=== PATIENT | female | born 2000 | race Two or more races ===

== ENCOUNTER 2024-04-25 17:44 | Inpatient (IN) | payer MEDICAID, OTHER ==
[~2024-04-25] VITALS: Ht 162.6 cm; Wt 94.6 kg
--- NOTE | 2024-04-25 18:28 | ED.PDOC ---
History of Present Illness HPI Comments 23 y/o F, with a Hx of irregular periods, obesity, and tobacco use, presents with c/o non-radiating, RUQ abdominal pain, nausea, vomiting, increase urine frequency, and abnormal vaginal bleeding for the past 2x days, today. Patient is a Urdu speaker and endorses on unprovoked onset of symptoms, with no prior Hx in the past. Patient comments on noticing blood whenever using the bathroom and wiping. Patient states on LMP being 2x months ago but refutes being , currently. Patient reports no additional relevant or pertinent Hx along with any recent injuries, sick contact, travel, spoiled food, sexual activity, or substance use/exposure. Patient denies having any hematemesis, diarrhea, dysurias, fever, chills, or other associated symptoms or modifiers at this time. 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: Other (irregular periods ) LMP 02/2024 Family History Family History: Reviewed,noncontributory to illness, No family hx of Cancer, No family hx of DM, No family hx of Heart linda, No family hx of HTN, No family hx ofKidney linda, No family hx of Liver linda, No family hx of Lung linda, No family hx of Stroke Social History Smoker: Cigarettes Alcohol: Denies ETOH Use Drugs: Denies Drug Use Lives In: Home Constitutional: denies: chills, diaphoresis, fatigue, fever, malaise, sweats, weakness, others EENTM: denies: blurred vision, double vision, ear bleeding, ear discharge, ear drainage, ear pain, ear ringing, eye pain, eye redness, hearing loss, mouth pain, mouth swelling, nasal discharge, nose bleeding, nose congestion, nose pain, photophobia, tearing, throat pain, throat swelling, voice changes, others Respiratory: denies: cough, hemoptysis, orthopnea, SOB at rest, shortness of breath, SOB with excertion, stridor, wheezing, others Cardiovascular: denies: chest pain, dizzy spells, diaphoresis, Dyspnea on exertion, edema, irregular heart beat, left arm pain, lightheadedness, palpitations, PND, syncope, others Gastrointestinal: reports: abdominal pain, nausea, vomiting; denies: abdomen distended, blood streaked bowels, constipated, diarrhea, dysphagia, difficulty swallowing, hematemesis, melena, poor appetite, poor fluid intake, rectal bleeding, rectal pain, others Genitourinary: reports: abnormal vagina bleeding, frequency (urination ); denies: burning, dyspareunia, dysuria, flank pain, hematuria, incontinence, pain, , vagina discharge, urgency, others Neurological: denies: dizziness, fainting, headache, left sided numbness, left sided weakness, numbness, paresthesia, pre-existing deficit, right sided nu mbness, right sided weakness, seizure, speech problems, tingling, tremors, weakness, others Musculoskeletal: denies: back pain, gout, joint pain, joint swelling, muscle pain, muscle stiffness, neck pain, others Integumetry: denies: bruises, change in color, change in hair/nails, dryness, laceration, lesions, lumps, rash, wounds, others Allergic/Immunocompromised: denies: Difficulty Healing, Frequent Infections, Hives, Itching, others Hematologic/Lymphatic: denies: anemia, blood clots, easy bleeding, easy bruising, swollen glands, others Endocrine: denies: excessive hunger, excessive sweating, excessive thirst, excessive urination, flushing, intolerance to cold, intolerance to heat, unexplained weight gain, unexplained weight loss, others Psychiatric: denies: anxiety, bipolar disorder, depression, hopeless, panic disorder, schizophrenia, sleepless, suicidal, others All Other Systems: Reviewed and Negative Physical Exam General Appearance: Moderate Distress HEENT: Normal ENT Inspection, Pharynx Normal, TMs Normal Neck: Full Range of Motion, Non-Tender, Normal, Normal Inspection Respiratory: Chest Non-Tender, Lungs Clear, No Accessory Muscle Use, No Respiratory Distress, Normal Breath Sounds Cardiovascular: No Edema, No JVD, No Murmur, No Gallop, Normal Peripheral Pulses, Regular Rate/Rhythm Breast Exam: Deferred Gastrointestinal: No Organomegaly, No Pulsatile Mass, Normal Bowel Sounds, RUQ, Soft, Tenderness Genitalia: Deferred Pelvic: Deferred Rectal: Deferred Extremities: No calf tenderness, Normal capillary refill, Normal inspection, Normal range of motion, Non-tender, No pedal edema Musculoskeletal : Apperance: Normal Neurologic: Alert, 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 Was a procedure done?: No Differential Dx Considerations may include: cholelithiasis, cholecystitis, gastritis, gastroenteritis, PUD, GERD, spoiled food, , pyelonephritis, nephrolithiasis X-Ray, Labs, Meds, VS Vital Signs Date Time Temp Pulse Resp B/P (MAP) Pulse Ox O2 Delivery O2 Flow Rate FiO2 04/25/24 18:47 98.0 88 18 124/79 (94) 97 Lab Test 04/25/24 19:39 04/25/24 18:55 Range/Units Urine Color Pending Urine Clarity Pending Urine pH Pending Urine Specific [place] Pending Urine Protein Pending Urine Ketones Pending Urine Blood Pending Urine Nitrite Pending Urine Bilirubin Pending Urine Urobilinogen Pending Urine Leukocyte Esterase Pending Urine RBC Pending Urine WBC Pending Urine Squamous Epithelial Cells Pending Urine Bacteria Pending Urine Glucose Pending White Blood Count 9.6 4.4-10.8 10^3/uL Red Blood Count 4.71 4.0-5.20 10^6/uL Hemoglobin 14.3 12.2-16.2 g/dL Hematocrit 42.2 36.0-46.0 % Mean Corpuscular Volume 89.5 80.0-100.0 fL Mean Corpuscular Hemoglobin 30.3 28.0-32.0 pg Mean Corpuscular Hemoglobin Concent 33.9 32.0-36.0 g/dL Red Cell Distribution Width 14.3 11.8-14.3 % Platelet Count 248 140-450 10^3/uL Mean Platelet Volume 9.7 6.9-10.8 fL Neutrophils (%) (Auto) 76.3 37.0-80.0 % Lymphocytes (%) (Auto) 14.5 10.0-50.0 % Monocytes (%) (Auto) 5.3 0.0-12.0 % Eosinophils (%) (Auto) 3.5 0.0-7.0 % Basophils (%) (Auto) 0.4 0.0-2.0 % Neutrophils # (Auto) 7.3 1.6-8.6 10 ^3/uL Lymphocytes # (Auto) 1.4 0.4-5.4 10 ^3/uL Monocytes # (Auto) 0.5 0-1.3 10 ^3/uL Eosinophils # (Auto) 0.3 0-0.8 10 ^3/uL Basophils # (Auto) 0 0-0.2 10 ^3/uL Nucleated Red Blood Cells 0.0 % Sodium Level 142 136-145 mmol/L Potassium Level 4.1 3.5-5.1 mmol/L Chloride Level 106 98-107 mmol/L Carbon Dioxide Level 29 20-31 mmol/L Anion Gap 7 5-15 Blood Urea Nitrogen 12 9-23 mg/dL Creatinine 0.78 0.550-1.02 mg/dL Glomerular Filtration Rate Calc 109 >90 mL/min BUN/Creatinine Ratio 15.4 10.0-20.0 Serum Glucose 111 H 74-106 mg/dL Calcium Level 10.5 H 8.7-10.4 mg/dL Total Bilirubin 1.6 H 0.2-1.0 mg/dL Aspartate Amino Transferase (AST) 254 H 13-40 U/L Alanine Aminotransferase (ALT) 220 H 7-40 U/L Alkaline Phosphatase 163 H 46-116 U/L Total Protein 7.7 5.7-8.2 g/dL Albumin 5.0 H 3.2-4.8 g/dL Lipase 40 12-53 U/L Beta HCG, Quantitative 1.9 1.5-4.2 mIU/mL Ultrasound of the gallbladder shows: IMPRESSION: 1. Cholelithiasis without evidence of cholecystitis IV Hep-Lock was established. The patient was given Zofran 4 mg IV push for the nausea The patient was given Protonix 40 mg IV push The patient's CBC is within normal limits The liver enzymes are significantly elevated. The quantitative hCG is negative The bilirubin is elevated at 1.6 The patient will be admitted to the hospitalist. The diagnosis is acute cholelithiasis Images Reviewed?: Images reviewed and evaluated by me Time of 1ST Reevaluation: 18:45 Reevaluation 1ST: Unchanged Patient Education/Counseling: Diagnosis, Treatment, Prognosis Family Education/Counseling: No Family Present Departure 1 Departure Time of Disposition: 20:15 Impression: Primary Impression: Intractable abdominal pain Additional Impression: Cholelithiasis Qualified Codes: K80.20 - Calculus of gallbladder without cholecystitis without obstruction Disposition: ADMITTED INPATIENT Admit to: Med Surg Condition: Fair Critical Care Note Critical Care Time?: No Stability Stability form required: Yes Unstable for transfer: ED Physician Assesment (Clinical assesment) Heart Score Heart Score: Heart Score Response (Comments) Value History N/A 0 EKG N/A 0 Age N/A 0 Risk Factors N/A 0 Troponin N/A 0 Total 0 I personally scribed for AUGUSTO RESENDEZ MD ([email or web address]) on 04/25/24 at 18:28. Electronically submitted by Satinder Cobb ([email or web address]). AUGUSTO RESENDEZ MD Apr 25, 2024 18:28
[2024-04-25 19:31] LABS: Basophils # (auto) 0 10 ^3/uL (0-0.2); Basophils % (auto) 0.4 % (0.0-2.0); Eosinophils # (auto) 0.3 10 ^3/uL (0-0.8); Eosinophils % (auto) 3.5 % (0.0-7.0); Hematocrit 42.2 % (36.0-46.0); Hemoglobin 14.3 g/dL (12.2-16.2); Lymphocytes # (auto) 1.4 10 ^3/uL (0.4-5.4); Lymphocytes % (auto) 14.5 % (10.0-50.0); Mean Corpuscular Hemoglobin 30.3 pg (28.0-32.0); Mean Corpuscular Hgb Conc. 33.9 g/dL (32.0-36.0); Mean Corpuscular Volume 89.5 fL (80.0-100.0); Monocytes # (auto) 0.5 10 ^3/uL (0-1.3); Monocytes % (auto) 5.3 % (0.0-12.0); Neutrophils # (auto) 7.3 10 ^3/uL (1.6-8.6); Neutrophils % (auto) 76.3 % (37.0-80.0); Platelet Count (auto) 248 10^3/uL (140-450); Red Blood Cells 4.71 10^6/uL (4.0-5.20); Red Cell Distribution Width 14.3 % (11.8-14.3); White Blood Cell 9.6 10^3/uL (4.4-10.8)
[2024-04-25 19:40] LABS: Urine Bacteria None Seen /hpf (None Seen)
[2024-04-25 19:53] LABS: Anion Gap 7 (5-15); BUN/Creatinine Ratio 15.4 (10.0-20.0); Blood Urea Nitrogen 12 mg/dL (9-23); Carbon Dioxide 29 mmol/L (20-31); Chloride 106 mmol/L (98-107); Lipase 40 U/L (12-53); Potassium 4.1 mmol/L (3.5-5.1); Sodium 142 mmol/L (136-145); Total Protein 7.7 g/dL (5.7-8.2)
--- NOTE | 2024-04-25 20:02 | DVH ---
INDICATION: pain TECHNIQUE: Multiple real-time sonographic images of the abdomen were obtained. COMPARISON: None FINDINGS: Liver is homogenous in echogenicity. The liver measures 16.4 cm. No intrahepatic biliary ductal dilatation is noted. The gallbladder wall measures 0.2 cm and is unremarkable. Multiple mobile gallstones seen. No per icholecystic fluid or edema. The common duct measures 0.7 cm and is unremarkable. The right kidney measures 10.6 cm. No hydronephrosis. The pancreas is not well visualized due to obscuration from bowel gas. The visualized portions of the IVC and aorta are grossly unremarkable. IMPRESSION: 1. Cholelithiasis without evidence of cholecystitis
[2024-04-25 20:03] LABS: Alanine Aminotransferase 220 U/L (7-40); Alkaline Phosphatase 163 U/L (46-116); Aspartate Aminotransferase 254 U/L (13-40); Bilirubin, Total 1.6 mg/dL (0.2-1.0); Calcium 10.5 mg/dL (8.7-10.4); Glucose 111 mg/dL (74-106)
[2024-04-25 20:20] LABS: Urine Blood 3+ /uL (Negative); Urine Clarity Clear (Clear); Urine Color Yellow (Yellow); Urine Protein, UAD TRACE (Negative); Urine Specific Gravity 1.027 (1.001-1.035); Urine Urobilinogen 4 mg/dL (Negative); Urine WBC 3 /hpf (0 - 5); Urine pH 6.5 (5.0-9.0)
[2024-04-25] MEDS ORDERED: ONDANSETRON HCL 4 MG/2 ML VIAL IV PRN (21:15)
[2024-04-25] MEDS ORDERED: MORPHINE SULFATE INJ 2 MG/ml SYRG IV PRN ×2 (21:15)
[2024-04-25] MEDS ORDERED: NITROGLYCERIN 0.4 MG SL TAB SL PRN (21:15)
[2024-04-25] MEDS ORDERED: ACETAMINOPHEN 325 MG TAB PO PRN ×2 (21:15)
[2024-04-25 22:02] LABS: Triglycerides 133 mg/dL (< 150)
[2024-04-25 22:03] LABS: LDL Cholesterol 87 mg/dL (< 100)
[2024-04-25 22:04] LABS: Cholesterol 163 mg/dL (< 200); HDL Cholesterol 52 mg/dL (40-59)
[2024-04-25 22:12] LABS: INR 1.04 (0.9-1.15)
--- NOTE | 2024-04-25 22:34 | DVHHPRES ---
History of Present Illness Resident Creating Document: JASMYN SAENZ RESIDENT Reason for Visit: acute abdominal pain History of Present Illness 23-year-old female patient with past medical history of obesity nicotine dependency, presented to the Emergency permanent with the acute onset abdominal pain localized in the right upper quadrant, patient reports to have similar episodes in the past the last 1 being 1 year ago, this episode began today at 2:00 him and resolved by itself at 6:00 p.m. it started in the middle of the abdomen and travel to the right upper quadrant and does not exacerbates after meals as patient reports she had heavy meal that morning(greasy). The pain is associated with nausea, vomiting, increased urinary frequency , abnormal vaginal bleeding over the past two days. She denies recent injuries, sick contacts, travel consumption of spoiled food, sexual activity on exposure to substances. She also denies hematemesis area dysuria fever or other systemic symptoms. An abdominal ultrasound revealed findings of cholelithiasis without evidence of acute cholecystitis. Laboratory evaluation showed elevated AST and ALT and alkaline phosphatase, coagulation panels and other labs including vitals were within normal limits. mcburney and goyal signs were negative. Past Medical History Obesity Nicotine dependency Family History: None Smoke: <1 pack per day ALCOHOL: occassional Domestic Violence: Neg Review of Systems Review of Systems Constitutional: No: Fever, Chills, Sweats, Weakness, Malaise, Other Eyes: No: Pain, Vision change, Conjunctivae inflammation, Eyelid inflammation, Other, Redness ENT: No: Ear pain, Ear discharge, Nose pain, Nose discharge, Nose congestion, Mouth pain, Mouth swelling, Throat pain, Throat swelling, Other Respiratory: No Wheezing, Hemoptysis, Pleuritic Pain, Sputum, Wheezing, Other Cardiovascular: No: Chest Pain, Palpitations, Orthopnea, Paroxysmal Noc. Dyspnea, Edema, Lt Headedness, Other Gastrointestinal: No: Nausea, Vomiting, Abdominal Pain, Diarrhea, Constipation, Melena, Hematochezia, Other Musculoskeletal: No: other, neck pain, shoulder pain, arm pain, back pain, hand pain, leg pain, foot pain Neurological:; No: Weakness, Numbness, Incoordination, Change in speech, Confusion, Seizures Allergies: Coded Allergies: NO KNOWN ALLERGIES (Unverified , 04/25/24) Medications Current Medications Medications Dose Ordered Sig/Wilmer Route Start Time Stop Time Status Last Admin Dose Admin Sodium Chloride 1,000 ml @ 60 mls/hr [id number] IV 04/25/24 21:15 Ondansetron HCl 4 mg Q4HP PRN IV 04/25/24 21:15 Acetaminophen 650 mg Q6HP PRN PO 04/25/24 21:15 Morphine Sulfate 2 mg Q4HPRN PRN IV 04/25/24 21:15 Nitroglycerin 0.4 mg Q5MINP PRN SL 04/25/24 21:15 Morphine Sulfate 2 mg Q30M PRN IV 04/25/24 21:15 Exam Vital Signs Vital Signs Date Time Temp Pulse Resp B/P (MAP) Pulse Ox O2 Delivery O2 Flow Rate FiO2 04/25/24 18:47 98.0 88 18 124/79 (94) 97 Exam Examination General Appearance: Alert, Oriented X3, Cooperative, No acute distress HEENT: EOMI Respiratory: Clear to auscultation, Normal air movement Cardiovascular: Regular rate, Normal S1, Normal S2 Abdominal: Normal bowel sounds Extremities: No cyanosis, No edema, Normal pulses, No tenderness/swelling Skin: No rashes, No breakdown Neuro: Normal gait, Normal speech, Strength at 5/5 X4 ext, Normal tone, Sensation intact, Cranial nerves 3-12 NL, Reflexes 2+ Psych/Mental Status: Mental status NL, Mood NL Labs/Xrays Labs Test 04/25/24 19:39 04/25/24 18:55 Range/Units Urine Color Yellow Yellow Urine Clarity Clear Clear Urine pH 6.5 5.0-9.0 Urine Specific [place] 1.027 1.001-1.035 Urine Protein Trace H Negative Urine Ketones Negative Negative Urine Blood 3+ H Negative /uL Urine Nitrite Negative Negative Urine Bilirubin Negative Negative Urine Urobilinogen 4 H Negative mg/dL Urine Leukocyte Esterase Trace Negative /uL Urine RBC 49 0 - 4 /hpf Urine WBC 3 0 - 5 /hpf Urine Squamous Epithelial Cells Few <5 /hpf Urine Bacteria None seen None Seen /hpf Urine Glucose Normal Normal mg/dL White Blood Count 9.6 4.4-10.8 10^3/uL Red Blood Count 4.71 4.0-5.20 10^6/uL Hemoglobin 14.3 12.2-16.2 g/dL Hematocrit 42.2 36.0-46.0 % Mean Corpuscular Volume 89.5 80.0-100.0 fL Mean Corpuscular Hemoglobin 30.3 28.0-32.0 pg Mean Corpuscular Hemoglobin Concent 33.9 32.0-36.0 g/dL Red Cell Distribution Width 14.3 11.8-14.3 % Platelet Count 248 140-450 10^3/uL Mean Platelet Volume 9.7 6.9-10.8 fL Neutrophils (%) (Auto) 76.3 37.0-80.0 % Lymphocytes (%) (Auto) 14.5 10.0-50.0 % Monocytes (%) (Auto) 5.3 0.0-12.0 % Eosinophils (%) (Auto) 3.5 0.0-7.0 % Basophils (%) (Auto) 0.4 0.0-2.0 % Neutrophils # (Auto) 7.3 1.6-8.6 10 ^3/uL Lymphocytes # (Auto) 1.4 0.4-5.4 10 ^3/uL Monocytes # (Auto) 0.5 0-1.3 10 ^3/uL Eosinophils # (Auto) 0.3 0-0.8 10 ^3/uL Basophils # (Auto) 0 0-0.2 10 ^3/uL Nucleated Red Blood Cells 0.0 % Prothrombin Time 11.0 9.3-11.8 sec Prothrombin Time INR 1.04 0.9-1.15 Sodium Level 142 136-145 mmol/L Potassium Level 4.1 3.5-5.1 mmol/L Chloride Level 106 98-107 mmol/L Carbon Dioxide Level 29 20-31 mmol/L Anion Gap 7 5-15 Blood Urea Nitrogen 12 9-23 mg/dL Creatinine 0.78 0.550-1.02 mg/dL Glomerular Filtration Rate Calc 109 >90 mL/min BUN/Creatinine Ratio 15.4 10.0-20.0 Serum Glucose 111 H 74-106 mg/dL Calcium Level 10.5 H 8.7-10.4 mg/dL Total Bilirubin 1.6 H 0.2-1.0 mg/dL Aspartate Amino Transferase (AST) 254 H 13-40 U/L Alanine Aminotransferase (ALT) 220 H 7-40 U/L Alkaline Phosphatase 163 H 46-116 U/L Total Protein 7.7 5.7-8.2 g/dL Albumin 5.0 H 3.2-4.8 g/dL Lipase 40 12-53 U/L Beta HCG, Quantitative 1.9 1.5-4.2 mIU/mL Assessment/Plan Assessment/Plan #Acute abdominal , likely biliary colic with possible hepatobiliary or gastrointestinal components. -Cholelithiasis without acute cholecystitis, cholecystitis was ruled out based on abdominal ultrasound -morphine IV -ondansetron IV -surgical consultation as the patient will need a laparoscopic cholecystectomy -NPO -PT PTT and INR #Transaminitis likely due to hepatic involvement or biliary pathology -treat underlying condition #morbid obesity -lifestyle modification and dietary habits counseling Case discussed with Dr. Coyne Code status: Full code Goals of care discussed with the patient for 38 minutes Plan discussed with: Patient My Orders Orders - JASMYN SAENZ RESIDENT Procedure Category Date Status Time Admit ADMIT 04/25/24 Transmitted 21:13 Allergies XAVI 04/25/24 In Process 21:13 Code Status CODE 04/25/24 Transmitted 21:13 Sodium Chloride 0.9% PHA 04/25/24 In Process 21:15 Ondansetron Hcl PHA 04/25/24 In Process (Zofran) 21:15 Complete Blood Count LAB 04/26/24 Verified 04:00 Comprehensive LAB 04/26/24 Verified Metabolic Panel 04:00 Npo (Nothing By DIET 04/26/24 Transmitted Mouth) Diet Breakfast Acetaminophen Tablet PHA 04/25/24 In Process (Tylenol Tablet) 21:15 Morphine Sulfate PHA 04/25/24 In Process Injection 21:15 Nitroglycerin PHA 04/25/24 In Process Sublingual (Ntrostat 21:15 Morphine Sulfate PHA 04/25/24 In Process Injection 21:15 Oxygen By Nasal RT 04/25/24 Transmitted Cannula 21:13 Stat Ekg For Chest XAVI 04/25/24 In Process Pain 21:13 Notify Md Of Changes XAVI 04/25/24 In Process From Base 21:13 Architectural Examiner For XAVI 04/25/24 In Process 24 Hours 21:13 Emergency Dysrhythmia XAVI 04/25/24 In Process Protocol 21:13 Rhythm Strips Once XAVI 04/25/24 In Process Every Shift 21:13 Drug Screen LAB 04/25/24 In Process 21:20 Thyroid Stimulating LAB 04/25/24 In Process Hormone 21:20 Hemoglobin A1c LAB 04/25/24 In Process 21:20 Lipid Panel LAB 04/25/24 In Process 21:29 Date of Service: Apr 25, 2024 Billing Provider: JASPER COYNE MD Common Visit Codes: [id number] INP/OBS CARE (HIGH) JASMYN SAENZ RESIDENT Apr 25, 2024 22:34 JASPER COYNE MD Apr 26, 2024 15:01
[2024-04-25 23:04] LABS: Amphetamine Screen, Urine Neg (NEGATIVE); Barbiturate Scree,Urine Neg (NEGATIVE); Benzodiazephine Screen, Urine Neg (NEGATIVE); Cocaine Screen, Urine Neg (NEGATIVE); Opiate Scree,Urine Neg (NEGATIVE); Phencyclidine Screen, Urine Neg (NEGATIVE)
[2024-04-25] MEDS: MORPHINE SULFATE 4 MG/ML SYR/VIAL IV ONE (23:08)
[2024-04-25] MEDS: PANTOPRAZOLE 40 MG/10 ML VIAL INJ IV ONE (23:08)
[2024-04-25] MEDS: ONDANSETRON HCL 4 MG/2 ML VIAL IV ONE (23:08)
[2024-04-25] MEDS: SODIUM CHLORIDE 0.9% 1,000 ML IV SCH (23:09)
[2024-04-25 23:15] VITALS: BP 119/54; PULSE 81; RESP 18; TEMP 98; O2SAT 99
[2024-04-25 23:30] LABS: Cannabinoid Screen, Urine Neg (NEGATIVE)
[2024-04-26 01:00] VITALS: BP 101/65; PULSE 67; RESP 18; TEMP 98.4; O2SAT 95
--- NOTE | 2024-04-26 06:25 | DVHDSRES ---
Discharge Summary Date of Admission Resident Creating Document: JASMYN SAENZ RESIDENT Apr 25, 2024 at 21:13 Date of Discharge: Apr 26, 2024 Admitting Diagnosis Acute abdominal pain Labs/Diagnostic Data: Laboratory Results Test 04/25/24 19:39 04/25/24 18:55 Urine Color Yellow (Yellow) Urine Clarity Clear (Clear) Urine pH 6.5 (5.0-9.0) Urine Specific [place] 1.027 (1.001-1.035) Urine Protein Trace (Negative) Urine Ketones Negative (Negative) Urine Blood 3+ /uL (Negative) Urine Nitrite Negative (Negative) Urine Bilirubin Negative (Negative) Urine Urobilinogen 4 mg/dL (Negative) Urine Leukocyte Esterase Trace /uL (Negative) Urine RBC 49 /hpf (0 - 4) Urine WBC 3 /hpf (0 - 5) Urine Squamous Epithelial Cells Few /hpf (<5) Urine Bacteria None seen /hpf (None Seen) Urine Glucose Normal mg/dL (Normal) Urine Opiates Screen Neg (NEGATIVE) Urine Fentanyl Screen Neg (NEGATIVE) Urine Barbiturates Screen Neg (NEGATIVE) Urine Phencyclidine Screen Neg (NEGATIVE) Urine Amphetamines Screen Neg (NEGATIVE) Urine Benzodiazepines Screen Neg (NEGATIVE) Urine Cocaine Screen Neg (NEGATIVE) Urine Cannabinoids Screen Neg (NEGATIVE) White Blood Count 9.6 10^3/uL (4.4-10.8) Red Blood Count 4.71 10^6/uL (4.0-5.20) Hemoglobin 14.3 g/dL (12.2-16.2) Hematocrit 42.2 % (36.0-46.0) Mean Corpuscular Volume 89.5 fL (80.0-100.0) Mean Corpuscular Hemoglobin 30.3 pg (28.0-32.0) Mean Corpuscular Hemoglobin Concent 33.9 g/dL (32.0-36.0) Red Cell Distribution Width 14.3 % (11.8-14.3) Platelet Count 248 10^3/uL (140-450) Mean Platelet Volume 9.7 fL (6.9-10.8) Neutrophils (%) (Auto) 76.3 % (37.0-80.0) Lymphocytes (%) (Auto) 14.5 % (10.0-50.0) Monocytes (%) (Auto) 5.3 % (0.0-12.0) Eosinophils (%) (Auto) 3.5 % (0.0-7.0) Basophils (%) (Auto) 0.4 % (0.0-2.0) Neutrophils # (Auto) 7.3 10 ^3/uL (1.6-8.6) Lymphocytes # (Auto) 1.4 10 ^3/uL (0.4-5.4) Monocytes # (Auto) 0.5 10 ^3/uL (0-1.3) Eosinophils # (Auto) 0.3 10 ^3/uL (0-0.8) Basophils # (Auto) 0 10 ^3/uL (0-0.2) Nucleated Red Blood Cells 0.0 % Prothrombin Time 11.0 sec (9.3-11.8) Prothrombin Time INR 1.04 (0.9-1.15) Sodium Level 142 mmol/L (136-145) Potassium Level 4.1 mmol/L (3.5-5.1) Chloride Level 106 mmol/L (98-107) Carbon Dioxide Level 29 mmol/L (20-31) Anion Gap 7 (5-15) Blood Urea Nitrogen 12 mg/dL (9-23) Creatinine 0.78 mg/dL (0.550-1.02) Glomerular Filtration Rate Calc 109 mL/min (>90) BUN/Creatinine Ratio 15.4 (10.0-20.0) Serum Glucose 111 mg/dL (74-106) Hemoglobin A1c 5.6 % A1C (<5.7) Calcium Level 10.5 mg/dL (8.7-10.4) Total Bilirubin 1.6 mg/dL (0.2-1.0) Aspartate Amino Transferase (AST) 254 U/L (13-40) Alanine Aminotransferase (ALT) 220 U/L (7-40) Alkaline Phosphatase 163 U/L (46-116) Total Protein 7.7 g/dL (5.7-8.2) Albumin 5.0 g/dL (3.2-4.8) Triglycerides Level 133 mg/dL (< 150) Cholesterol Level 163 mg/dL (< 200) LDL Cholesterol 87 mg/dL (< 100) HDL Cholesterol 52 mg/dL (40-59) Lipase 40 U/L (12-53) Thyroid Stimulating Hormone (TSH) 0.82 uIU/mL (0.55-4.78) Beta HCG, Quantitative 1.9 mIU/mL (1.5-4.2) Other Laboratory Tests 04/25/24 18:55 Brief Hx & Hospital Course: 23-year-old female with past medical history of obesity and nicotine dependency. She presented with the acute onset abdominal pain localized in the right upper quadrant. The pain started at 2:00 a.m., localize initially to the middle of the abdomen and resolved by itself at 6:00 p.m.. She has had similar episodes in the past, the most recent being a year ago. The pain does not exacerbated with meals, although she reported having a heavy, greasy meal earlier that morning. Associated symptoms include nausea vomiting increased urinary frequency, and abnormal vaginal bleeding over the past 2 days. The patient denied recent injury sick contacts, split food consumption, sexual activity or substance exposure. She also denied hematemesis, dysuria, fever or other symptoms. Hospital course: During the hospital stay, an abdominal ultrasound revealed findings of cholelithiasis without evidence of acute cholecystitis. Laboratory evaluation showed elevated AST, ALT and alkaline phosphatase, white coagulation panels and vitals were within normal limits. McBurney and Ray sign were negative. The patient was informed of her condition and the treatment plan. Discharge condition: Hole for the lung The patient eloped from the hospital prior to the completion of treatment and was not available for further medical evaluation or counseling attempts to contact the patient were unsuccessful. Condition at Discharge: Undetermined Final Diagnosis/Problems List Biliary colic Cholelithiasis Type 1 Obesity Discharge Disposition: Eloped SNF Discharge Will this Physician continue t: No Discharge Statement: "Patient was advised to return to the ER or call 911 if any headaches, dizziness, shortness of breath, chest pain, abdominal pain, bleeding, fevers, or worsening of medical condition. Patient was counseled about treatment plan, medications, possible side effects, patientverbalized understanding. All questions were answered to the best of my ability. This discharge took greater then 30 minutes in planning, reviewing documentation, counseling the patient, and discussing with other team members." ASSESSMENT ASSESSMENT Assessment Date of Service: Apr 26, 2024 Billing Provider: JASPER COYNE MD Common Visit Codes: 08914-WGY/OBS DISCH DAY <30MIN JASMYN SAENZ RESIDENT Apr 26, 2024 06:25 JASPER COYNE MD Apr 26, 2024 15:04
== END 2024-04-26 02:30 | disposition left against medical advice (07) ==
LOC: ER 17:44 → OVERFLOW 21:13 → WEST WING 23:39
PROVIDERS: ATTEND Emergency Medicine
DX: K80.70 Calculus of gallbladder and bile duct without cholecystitis without obstruction (principal); E66.01 Morbid (severe) obesity due to excess calories; Z53.29 Procedure and treatment not carried out because of patient's decision for other reasons; F17.210 Nicotine dependence, cigarettes, uncomplicated; R74.01 Elevation of levels of liver transaminase levels; Z79.899 Other long term (current) drug therapy; Z68.35 Body mass index [BMI] 35.0-35.9, adult
CPT/HCPCS: 36415; 76705; 80053; 80061; 80307; 81001; 83036; 83690; 84443; 84702; 85025; 85610; G0378

== ENCOUNTER 2024-11-06 11:30 | Emergency (ER) | payer MEDICAID ==
[~2024-11-06] VITALS: Ht 154.9 cm; Wt 89.0 kg
[2024-11-06 12:58] LABS: Urine Bacteria MOD /hpf (None Seen); Urine Blood TRACE /uL (Negative); Urine Clarity Ex.Turbid (Clear); Urine Color Yellow (Yellow); Urine Mucus MANY (None Seen); Urine Protein, UAD 1+ (Negative); Urine Specific Gravity 1.033 (1.001-1.035); Urine Squamous Epithelial Cell FEW /hpf (<5); Urine Urobilinogen Normal (Negative); Urine WBC 2 /HPF (0-5); Urine pH 5.5 (5.0-9.0)
[2024-11-06 13:19] LABS: Basophils # (auto) 0 10 ^3/uL (0-0.2); Basophils % (auto) 0.4 % (0.0-2.0); Eosinophils # (auto) 0.1 10 ^3/uL (0-0.8); Eosinophils % (auto) 0.7 % (0.0-7.0); Hematocrit 39.4 % (36.0-46.0); Hemoglobin 13.4 g/dL (12.2-16.2); Lymphocytes # (auto) 1.4 10 ^3/uL (0.4-5.4); Lymphocytes % (auto) 14.2 % (10.0-50.0); Mean Corpuscular Hemoglobin 29.3 pg (28.0-32.0); Mean Corpuscular Hgb Conc. 34.2 g/dL (32.0-36.0); Mean Corpuscular Volume 85.9 fL (80.0-100.0); Monocytes # (auto) 0.4 10 ^3/uL (0-1.3); Monocytes % (auto) 3.6 % (0.0-12.0); Neutrophils % (auto) 81.1 % (37.0-80.0); Platelet Count (auto) 216 10^3/uL (140-450); Red Blood Cells 4.58 10^6/uL (4.0-5.20); Red Cell Distribution Width 15.5 % (11.8-14.3); White Blood Cell 9.9 10^3/uL (4.4-10.8)
[2024-11-06 13:29] LABS: Chloride 107 mmol/L (98-107); Sodium 140 mmol/L (136-145)
[2024-11-06 13:30] LABS: Anion Gap 9 (5-15); Calcium 9.9 mg/dL (8.7-10.4); Carbon Dioxide 24 mmol/L (20-31)
[2024-11-06 13:35] LABS: BUN/Creatinine Ratio 10.4 (10.0-20.0); Blood Urea Nitrogen 8 mg/dL (9-23); Glucose 109 mg/dL (74-106)
--- NOTE | 2024-11-06 14:43 | ED.PDOC ---
GI ASSESSMENT HPI Comments 24-year-old female with PMHx gallstones presents with a chief complaint of nausea, vomiting, and poor appetite while currently . Patient denies any abdominal pain at this time. Patient mentions that her vomit has been yellow in color and has been onset for a few days now. Patient mentions that she took a test from the pharmacy and it was , but she is unsure how far along she is. Patient is G3, P2. Denies taking any medications at home. Chief Complaint: Nausea/Vomiting Time Seen by MD: 14:20 Primary Care Provider: ? Reviewed Notes: Medications, Allergies Allergies: Coded Allergies: NO KNOWN ALLERGIES (Unverified , 04/25/24) Home Meds Active Scripts Doxylamine Succinate (Gnp Sleep Aid) 25 Mg Tab, 12.5 MG PO QHSP PRN for 30 Days, #15 TAB 0 Refills Prov:JEREMY OROZCO NP 11/06/24 Pyridoxine HCl (True Vitamin B6) 25 Mg Tab, 25 MG PO TID for 14 Days, #42 TAB 0 Refills Prov:JEREMY OROZCO NP 11/06/24 Vit W/ Ferrous Fumara ( One Daily) Daily Tab, 1 TAB PO DAILY for 90 Days, #90 TAB 1 Refill Prov:JEREMY OROZCO NP 11/06/24 Information Source: Patient Mode of Arrival: Ambulatory Timing: Days Duration: Since onset Prehospital treatment: None Quality: None Vomitus: Food Particles Stool: Normal Severity: Moderate Recent: None Recent Hx of: Current Pain Location: None Associated sign and symptoms: Nausea, Vomiting Past Medical History Surgical History: Denies all surgeries [employer] 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 History: Other Family History Family History: Reviewed,noncontributory to illness, No family hx of Cancer, No family hx of DM, No family hx of Heart linda, No family hx of HTN, No family hx ofKidney linda, No family hx of Liver linda, No family hx of Lung linda, No family hx of Stroke Social History Smoker: Cigarettes Alcohol: Denies ETOH Use Drugs: Denies Drug Use Lives In: Home Constitutional: denies: chills, diaphoresis, fatigue, fever, malaise, sweats, weakness, others EENTM: denies: blurred vision, double vision, ear bleeding, ear discharge, ear drainage, ear pain, ear ringing, eye pain, eye redness, hearing loss, mouth pain, mouth swelling, nasal discharge, nose bleeding, nose congestion, nose pain, photophobia, tearing, throat pain, throat swelling, voice changes, others Respiratory: denies: cough, hemoptysis, orthopnea, SOB at rest, shortness of breath, SOB with excertion, stridor, wheezing, others Cardiovascular: denies: chest pain, dizzy spells, diaphoresis, Dyspnea on exertion, edema, irregular heart beat, left arm pain, lightheadedness, palpitations, PND, syncope, others Gastrointestinal: reports: nausea, poor appetite, vomiting; denies: abdomen distended, abdominal pain, blood streaked bowels, constipated, diarrhea, dysphagia, difficulty swallowing, hematemesis, melena, poor fluid intake, rectal bleeding, rectal pain, others Genitourinary: reports: ; denies: abnormal vagina bleeding, burning, dyspareunia, dysuria, flank pain, frequency, hematuria, incontinence, pain, vagina discharge, urgency, others Neurological: denies: dizziness, fainting, headache, left sided numbness, left sided weakness, numbness, paresthesia, pre-existing deficit, right sided numbness, right sided weakness, seizure, speech problems, tingling, tremors, weakness, others Musculoskeletal: denies: back pain, gout, joint pain, joint swelling, muscle pain, muscle stiffness, neck pain, others Integumetry: denies: bruises, change in color, change in hair/nails, dryness, laceration, lesions, lumps, rash, wounds, others Allergic/Immunocompromised: denies: Difficulty Healing, Frequent Infections, Hives, Itching, others Hematologic/Lymphatic: denies: anemia, blood clots, easy bleeding, easy bruising, swollen glands, others Endocrine: denies: excessive hunger, excessive sweating, excessive thirst, excessive urination, flushing, intolerance to cold, intolerance to heat, unexplained weight gain, unexplained weight loss, others Psychiatric: denies: anxiety, bipolar disorder, depression, hopeless, panic disorder, schizophrenia, sleepless, suicidal, others All Other Systems: Reviewed and Negative Physical Exam General Appearance: No Apparent Distress, Normal HEENT: Normal ENT Inspection, Pharynx Normal, TMs Normal Neck: Full Range of Motion, Non-Tender, Normal, Normal Inspection Respiratory: Chest Non-Tender, Lungs Clear, No Accessory Muscle Use, No Respiratory Distress, Normal Breath Sounds Cardiovascular: No Edema, No JVD, No Murmur, No Gallop, Normal Peripheral Pulses, Regular Rate/Rhythm Breast Exam: Deferred Gastrointestinal: No Organomegaly, Non Tender, No Pulsatile Mass, Normal Bowel Sounds, Soft Genitalia: Deferred Pelvic: Deferred Rectal: Deferred Extremities: No calf tenderness, Normal capillary refill, Normal inspection, Normal range of motion, Non-tender, No pedal edema Musculoskeletal : Apperance: Normal Neurologic: Alert, 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 Was a procedure done?: No GI differential Dx Differential Diagnosis: , Viral X-Ray, Labs, Meds, VS Vital Signs Date Time Temp Pulse Resp B/P (MAP) Pulse Ox O2 Delivery O2 Flow Rate FiO2 11/06/24 15:42 98.2 78 16 112/80 (91) 98 98.2 11/06/24 14:22 99.0 83 16 102/61 (75) 97 99.0 11/06/24 14:22 83 16 97 Room Air 11/06/24 11:45 99.0 83 16 102/61 (75) 97 99.0 Lab Test 11/06/24 13:07 11/06/24 11:44 Range/Units White Blood Count 9.9 4.4-10.8 10^3/uL Red Blood Count 4.58 4.0-5.20 10^6/uL Hemoglobin 13.4 12.2-16.2 g/dL Hematocrit 39.4 36.0-46.0 % Mean Corpuscular Volume 85.9 80.0-100.0 fL Mean Corpuscular Hemoglobin 29.3 28.0-32.0 pg Mean Corpuscular Hemoglobin Concent 34.2 32.0-36.0 g/dL Red Cell Distribution Width 15.5 H 11.8-14.3 % Platelet Count 216 140-450 10^3/uL Mean Platelet Volume 9.4 6.9-10.8 fL Neutrophils (%) (Auto) 81.1 H 37.0-80.0 % Lymphocytes (%) (Auto) 14.2 10.0-50.0 % Monocytes (%) (Auto) 3.6 0.0-12.0 % Eosinophils (%) (Auto) 0.7 0.0-7.0 % Basophils (%) (Auto) 0.4 0.0-2.0 % Neutrophils # (Auto) 8.0 1.6-8.6 10 ^3/uL Lymphocytes # (Auto) 1.4 0.4-5.4 10 ^3/uL Monocytes # (Auto) 0.4 0-1.3 10 ^3/uL Eosinophils # (Auto) 0.1 0-0.8 10 ^3/uL Basophils # (Auto) 0 0-0.2 10 ^3/uL Nucleated Red Blood Cells 0.0 % Sodium Level 140 136-145 mmol/L Potassium Level 4.0 3.5-5.1 mmol/L Chloride Level 107 98-107 mmol/L Carbon Dioxide Level 24 20-31 mmol/L Anion Gap 9 5-15 Blood Urea Nitrogen 8 L 9-23 mg/dL Creatinine 0.77 0.550-1.02 mg/dL Glomerular Filtration Rate Calc 110 >90 mL/min BUN/Creatinine Ratio 10.4 10.0-20.0 Serum Glucose 109 H 74-106 mg/dL Calcium Level 9.9 8.7-10.4 mg/dL Beta HCG, Quantitative 30962.7 H 1.5-4.2 mIU/mL Urine Color Yellow Yellow Urine Clarity Ex.turbid Clear Urine pH 5.5 5.0-9.0 Urine Specific [place] 1.033 1.001-1.035 Urine Protein 1+ H Negative Urine Ketones 2+ H Negative Urine Blood Trace H Negative /uL Urine Nitrite Negative Negative Urine Bilirubin Negative Negative Urine Urobilinogen Normal Negative mg/dL Urine Leukocyte Esterase 1+ Negative /uL Urine RBC 2 0 - 4 /hpf Urine Microscopic WBC 2 0-5 /HPF Urine Squamous Epithelial Cells Few <5 /hpf Urine Bacteria Mod H None Seen /hpf Urine Mucus Many None Seen Urine Glucose Normal Normal mg/dL Urine Test Positive Negative Current Medications Medications (Trade) Dose Ordered Sig/Wilmer Route Start Time Stop Time Status Last Admin Metoclopramide HCl (Reglan Oral Soln) 10 mg ONCE ONCE PO 11/06/24 14:30 11/06/24 14:35 DC 11/06/24 14:45 X-Ray, Labs, Meds, VS Comment 24-year-old female presents with a chief complaint of nausea, vomiting, poor appetite, and current . Patient arrives alert and oriented, ABC's intact, afebrile, vital signs stable, saturating well in room air Labs ordered. Reviewed. Labs were reassuring Upon re-evaluation patient reported significant improvement in regards to her nausea. Patient is stable for discharge at this time. Medication prescribed and patient was started on External notes reviewed. Test results and diagnostic imaging interpreted. All diagnostic findings, discharge care, education and instructions provided Follow-up with PCP + OB in 2 to 3 days Patient verbalized understanding and agreed to treatment plan Vital signs stable, afebrile, no acute distress noted Patient ambulatory with strong steady gait Advised to return precautions for any new or worsening symptoms, return to ER immediately for re-evaluation Patient is aware that the purpose of this visit was for an acute medical emergency requiring emergent stabilization. Chronic conditions, including malignancies have not been ruled out. Patient is instructed to follow up with PCP as directed and discharge instructions for continued care and workup. If unable to arrange follow-up, patient is to return to the emergency department for reassessment. Patient (parent or legal guardian if applicable) was given verbal and written discharge instructions and acknowledges understanding. Additional MDM Review of External, Non-ED records: External records reviewed. Discussion with independent historian (EMS, family) history obtained from the patient/parents (if applicable) at bedside Chronic conditions affecting care: None Social determinants of health affecting care: None Consideration of admission (observation or admission): I considered escalation of care to admission for this patient, however given the reassuring workup, the patient is safe for outpatient management. Time of 1ST Reevaluation: 14:50 Reevaluation 1ST: Improved Patient Education/Counseling: Diagnosis, Treatment, Prognosis Family Education/Counseling: No Family Present SEPSIS Sepsis Screen Date sepsis recognized/suspect: Nov 06, 2024 Time Sepsis recognized/suspect: 114 Recent Procedure: No On Antibiotic Therapy: No Respiratory Rate >20: No Heart Rate >90: No Temp<36 C (96.8 F) or >38.3 C: No SBP <90 or MAP <65 mmHG: No New Acute Mental Status Change: No Is the patient on CPAP, BIPAP,: No Orders/Vitals/Labs Vital Signs Date Time Temp Pulse Resp B/P (MAP) Pulse Ox O2 Delivery O2 Flow Rate FiO2 11/06/24 15:42 98.2 78 16 112/80 (91) 98 98.2 11/06/24 14:22 99.0 83 16 102/61 (75) 97 99.0 11/06/24 14:22 83 16 97 Room Air 11/06/24 11:45 99.0 83 16 102/61 (75) 97 99.0 Laboratory Tests Test 11/06/24 13:07 White Blood Count 9.9 10^3/uL (4.4-10.8) Departure 1 Departure Time of Disposition: 15:11 Impression: Primary Impression: test positive Additional Impression: Nausea/vomiting in Disposition: 01 HOME / SELF CARE / HOMELESS Condition: Fair e-Prescriptions Doxylamine Succinate (Gnp Sleep Aid) 25 Mg Tab 12.5 MG PO QHSP PRN for 30 Days, #15 TAB 0 Refills Prov: JEREMY OROZCO NP 11/06/24 Pyridoxine HCl (True Vitamin B6) 25 Mg Tab 25 MG PO TID for 14 Days, #42 TAB 0 Refills Prov: JEREMY OROZCO NP 11/06/24 Vit W/ Ferrous Fumara ( One Daily) Daily Tab 1 TAB PO DAILY for 90 Days, #90 TAB 1 Refill Prov: JEREMY OROZCO NP 11/06/24 Critical Care Note Critical Care Time?: No Stability Stability form required: No Heart Score Heart Score: Heart Score Response (Comments) Value History N/A 0 EKG N/A 0 Age N/A 0 Risk Factors N/A 0 Troponin N/A 0 Total 0 I personally scribed for JEREMY OROZCO NP ([email or web address]) on 11/06/24 at 14:43. Electronically submitted by Kirby Dominguez ([email or web address]). JEREMY OROZCO NP Nov 06, 2024 14:43
[2024-11-06] MEDS: METOCLOPRAMIDE 10 mg/10ml ORAL soln PO ONE (14:45)
[2024-11-06] MEDS ORDERED: DOXY25TA PO (15:16)
[2024-11-06] MEDS ORDERED: PREN-96 PO (15:16)
[2024-11-06] MEDS ORDERED: PYRI25TA23 PO (15:16)
[2024-11-06 15:42] VITALS: BP 112/80; PULSE 78; RESP 16; TEMP 98.2; O2SAT 98
== END 2024-11-06 15:42 | disposition home or self-care (01) ==
LOC: ER 11:30
DX: O21.9 Vomiting of pregnancy, unspecified (principal); O20.0 Threatened abortion; Z3A.00 Weeks of gestation of pregnancy not specified; Z32.01 Encounter for pregnancy test, result positive
CPT/HCPCS: 36415; 80048; 81001; 81025; 84702; 85025; 99283; J8597